=== PATIENT | female | born 1980 | race Caucasian/White ===

== ENCOUNTER 2017-01-12 10:07 | Emergency (ER) | payer SELFPAY ==
[2017-01-12 11:30] VITALS: BP 115/77
--- NOTE | 2017-01-12 12:05 | XRay Report ---
RIGHT WRIST, 4 VIEWS: History: wrist pain, injury. Routine views demonstrate the carpal bones to be well mineralized with well preserved bony mineralization and interosseous joint spaces. The carpal and adjacent articular bones have normal contours. The surrounding soft tissues are unremarkable. IMPRESSION: Unremarkable right wrist.
--- NOTE | 2017-01-12 18:21 | Emergency Department Report ---
Entered by RACHELE OROPEZA, acting as scribe for DOROTHY KIRAN NP. ED Upper Extremity Inj HPI - General Chief Complaint: Extremity Injury, Upper Stated Complaint: RIGHT WRIST PAIN Time Seen by Provider: 01/12/17 13:46 Source: patient Mode of arrival: Ambulatory Limitations: No Limitations - History of Present Illness Initial Comments: This is a 36 y/o female, nontoxic, well nourished in appearance, no acute signs of distress with a PMHx of HTN and Crohn's disease presents with gradually worsening right wrist pain that began 2 weeks ago. Patient states she was untying her dog from a chain leash 2 weeks ago, and her right wrist was subsequently pulled. Rates pain an 8/10 in severity, which she describes as sharp and throbbing in quality. Aggravated with movement and alleviated with immobilization. Denies numbness, tingling, swelling, fever, chills, chest pain, SOB, BRAVO, and dizziness. Took Tylenol PM with some relief. Allergic to penicillin. Complaint: Injury to:: right, wrist Onset/Timin -: week(s) Other Extremity Injury: Wrist: Right Other Injuries: none Handedness: right Place: home Severity scale (0 -10): 8 Improves With: immobilization, medication Worsens With: movement of extremity Context: other (pulled accidently while untying her dog from a leash) Associated Symptoms: denies other symptoms. denies: weakness, numbness, neck pain, suspects foreign body, nausea/vomiting, heard/felt popping sensat Treatments Prior to Arrival: NSAIDS (Tylenol PM) - Related Data Previous Rx's Medication Instructions Recorded Last Taken Type Hydrochlorothiazide [HCTZ] 12.5 mg PO QDAY #30 capsule 09/14/15 Unknown Rx Ibuprofen [Motrin 600 MG tab] 600 mg PO Q8H PRN #30 tablet 01/12/17 Unknown Rx Allergies Allergy/AdvReac Type Severity Reaction Status Date / Time Penicillins Allergy Hives Verified 01/12/17 11:24 ED Review of Systems Comment: All other systems reviewed and negative Constitutional: denies: chills, fever Eyes: denies: eye pain, eye discharge, vision change ENT: denies: ear pain, throat pain Respiratory: denies: cough, orthopnea, shortness of breath, SOB with exertion, SOB at rest, stridor, wheezing Cardiovascular: denies: chest pain, palpitations, dyspnea on exertion, orthopnea , edema, syncope, paroxysmal nocturnal dyspnea Endocrine: no symptoms reported Gastrointestinal: denies: abdominal pain, nausea, vomiting, diarrhea Genitourinary: denies: urgency, dysuria, discharge Musculoskeletal: arthralgia (RT wrist pain). denies: back pain, joint swelling , myalgia Skin: denies: rash, lesions Neurological: denies: headache, weakness, numbness, paresthesias Psychiatric: denies: anxiety, depression Hematological/Lymphatic: denies: easy bleeding, easy bruising ED Past Medical Hx - Past Medical History Previous Medical History?: Yes Hx Hypertension: Yes Hx Asthma: Yes Additional medical history: CROHNS ? - Surgical History Past Surgical History?: Yes Hx Cholecystectomy: Yes Additional Surgical History: tubal ligation. X 3 - Family History Family history: no significant - Social History Smoking Status: Former Smoker Substance Use Type: None - Medications Home Medications: Home Medications Medication Instructions Recorded Confirmed Last Taken Type Hydrochlorothiazide [HCTZ] 12.5 mg PO QDAY #30 capsule 09/14/15 01/12/17 Unknown Rx Ibuprofen [Motrin 600 MG tab] 600 mg PO Q8H PRN #30 tablet 01/12/17 Unknown Rx ED Physical Exam - General Limitations: No Limitations General appearance: alert, in no apparent distress - Head Head exam: Present: atraumatic, normocephalic - Eye Eye exam: Present: normal appearance, PERRL, EOMI. Absent: scleral icterus, conjunctival injection, nystagmus, periorbital swelling, periorbital tenderness Pupils: Present: normal accommodation - ENT ENT exam: Present: normal exam, normal orophraynx, mucous membranes moist, TM's normal bilaterally, normal external ear exam - Neck Neck exam: Present: normal inspection, full ROM. Absent: tenderness, meningismus, lymphadenopathy, thyromegaly - Respiratory Respiratory exam: Present: normal lung sounds bilaterally. Absent: respiratory distress, wheezes, rales, rhonchi, stridor, chest wall tenderness, accessory muscle use, decreased breath sounds, prolonged expiratory - Cardiovascular Cardiovascular Exam: Present: regular rate, normal rhythm, normal heart sounds. Absent: bradycardia, tachycardia, irregular rhythm, systolic murmur, diastolic murmur, rubs, gallop - GI/Abdominal GI/Abdominal exam: Present: soft, normal bowel sounds. Absent: distended, tenderness, guarding, rebound, rigid - Extremities Exam Extremities exam: Present: full ROM (painful FROM to RT wrist), tenderness (RT lateral wrist), normal capillary refill. Absent: normal inspection, pedal edema , joint swelling, calf tenderness - Expanded Upper Extremity Exam Right General: Present: normal inspection. Absent: laceration, abrasion, nail injury (#), foreign body, amputation, avulsion Shoulder Exam: Present: normal inspection, full ROM. Absent: tenderness, swelling, abrasion, laceration, ecchymosis, deformity, crepidus, dislocation, erythema, tenderness over AC joint Upper Arm exam: Present: normal inspection, full ROM. Absent: tenderness, swelling, abrasion, laceration, ecchymosis, deformity, crepidus, dislocation, erythema Elbow exam: Present: normal inspection, full ROM. Absent: tenderness, swelling , abrasion, laceration, ecchymosis, deformity, crepidus, dislocation, erythema, effusion, pain w/ pronation/supination, tenderness over radial head Forearm Wrist exam: Present: normal inspection, full ROM. Absent: tenderness, swelling, abrasion, laceration, ecchymosis, deformity, crepidus, dislocation, erythema, tenderness over anatomical snuff box, pain with axial thumb loading Hand Wrist exam: Present: full ROM (painful FROM to RT wrist), tenderness (RT lateral wrist). Absent: normal inspection, swelling, abrasion, laceration, ecchymosis, deformity, crepidus, dislocation, erythema, amputation, nail avulsion, subungual hematoma Neuro motor exam: Present: wrist extension intact, thumb opposition intact, thumb IP flexion intact, thumb adduction intact, fingers 2-5 abduction intact Neurosensory exam: Present: 2-point discrimination, radial nerve intact, ulnar nerve intact, median nerve intact Vascular: Present: normal capillary refill, radial pulse (2+), brachial pulse, ulnar pulse. Absent: vascular compromise, Pallo, pulse deficit radial art - Back Exam Back exam: Present: normal inspection, full ROM. Absent: tenderness, CVA tenderness (R), CVA tenderness (L), muscle spasm, paraspinal tenderness, vertebral tenderness, rash noted - Neurological Exam Neurological exam: Present: alert, oriented X3, CN II-XII intact, normal gait, reflexes normal. Absent: motor sensory deficit - Psychiatric Psychiatric exam: Present: normal affect, normal mood - Skin Skin exam: Present: warm, dry, intact. Absent: rash ED Course Vital Signs 01/12/17 11:27 Temperature 98.3 F Pulse Rate 54 L Respiratory 18 Rate Blood Pressure 115/77 O2 Sat by Pulse 100 Oximetry - Reevaluation(s) Reevaluation #1: 01/12/17 14:45 Patient is speaking in full sentences with no siigns of distress ED Medical Decision Making - Radiology Data Radiology results: report reviewed interpreted by me: Dr. Duffy Negative findings of any fractures, dislocation or any abnormalities. ED Disposition Clinical Impression: Wrist strain Qualifiers: Encounter type: initial encounter Laterality: right Qualified Code(s): S66.911A - Strain of unspecified muscle, fascia and tendon at wrist and hand level, right hand, initial encounter Disposition: TO HOME OR SELFCARE Is pt being admited?: No Does the pt Need Aspirin: No Condition: Stable Instructions: Wrist Injury (ED), Ibuprofen (By mouth) Additional Instructions: Follow-up with the orthopedic doctor in 3-5 days or if symptoms worsen to continue return to emergency room as soon as possible. Prescriptions: Ibuprofen [Motrin 600 MG tab] 600 mg PO Q8H PRN #30 tablet PRN Reason: Pain Referrals: PRIMARY CARE, [Primary Care Provider] - 3-5 Days KAYLEE MONTERROSO MD [Staff Physician] - 3-5 Days [facility] [Outside] - 3-5 Days [facility] [Outside] - 3-5 Days Forms: Work/School Release Form(ED) This documentation as recorded by the JOHNNA aguayo JASMINE,accurately reflects the service I personally performed and the decisions made by me,DOROTHY KIRAN, MEÑO.
== END 2017-01-12 14:55 | disposition home or self-care (01) ==
LOC: ED 10:07
DX: S66.911A Strain of unspecified muscle, fascia and tendon at wrist and hand level, right hand, initial encounter (principal); I10 Essential (primary) hypertension; J45.909 Unspecified asthma, uncomplicated; Z88.0 Allergy status to penicillin; Z87.891 Personal history of nicotine dependence; X58.XXXA Exposure to other specified factors, initial encounter; Y93.89 Activity, other specified; Y92.89 Other specified places as the place of occurrence of the external cause; Y99.8 Other external cause status
CPT/HCPCS: 99283

== ENCOUNTER 2019-07-23 03:41 | Emergency (ER) | payer SELFPAY ==
--- NOTE | 2019-07-23 08:23 | Emergency Department Report ---
Minor Respiratory - HPI Chief Complaint: Upper Respiratory Infection Stated Complaint: BODY ACHES, DIFFICULTY BREATHING, CHILLS Time Seen by Provider: 07/23/19 07:14 Duration: 2 Days Severity: mild Minor Respiratory: Yes Rhinorrhea, Yes Able to Tolerate Fluids, Yes Cough, Yes Sick Contacts, No Sore Throat, No Ear Pain, No Hemoptysis, No Chest Pain, No Shortness of Breath, No Fever Other History: This is a 39-year-old -Filip[place] female who presents to the emergency room with myalgia, cough, chills, and nausea for 2 days. 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 Past medical history of hypertension and Crohn's. She is currently taking [id number] cold and flu medication with minimal improvement of symptoms. Patient denies fever, vomiting, abdominal pain, diarrhea, or weakness. ED Review of Systems ROS: Stated complaint: BODY ACHES, DIFFICULTY BREATHING, CHILLS Other details as noted in HPI Constitutional: chills. denies: fever ENT: congestion. denies: ear pain, throat pain Respiratory: cough. denies: shortness of breath, wheezing Cardiovascular: denies: chest pain, palpitations Gastrointestinal: nausea. denies: abdominal pain, vomiting, diarrhea Musculoskeletal: denies: back pain, joint swelling, arthralgia Skin: denies: rash, lesions Neurological: denies: headache, weakness, paresthesias Psychiatric: denies: anxiety, depression ED Past Medical Hx - Past Medical History Previous Medical History?: Yes Hx Hypertension: Yes (taken off meds by md) Hx Asthma: Yes Additional medical history: CROHNS - Surgical History Past Surgical History?: Yes Hx Cholecystectomy: Yes Additional Surgical History: tubal ligation. X 3 - Social History Smoking Status: Never Smoker Substance Use Type: Marijuana - Medications Home Medications: Home Medications Medication Instructions Recorded Confirmed Last Taken Type hydroCHLOROthiazide [HCTZ] 12.5 mg PO QDAY #30 capsule 09/14/15 01/12/17 Unknown Rx Ibuprofen [Motrin 600 MG tab] 600 mg PO Q8H PRN #30 tablet 01/12/17 Unknown Rx Albuterol INH(or & Nicu Only) 2 puff IH QID PRN #8.5 gram 07/23/19 Unknown Rx [ProAir HFA Inhaler] Benzonatate [Tessalon Perles] 100 mg PO Q8HR PRN #30 capsule 07/23/19 Unknown Rx Minor Respiratory Exam - Exam General: Vital signs noted. No distress. Alert and acting appropriately. HEENT: Yes Moist Mucous Membranes, Yes Rhinorrhea (Turbinates congested with clear discharge), No Pharyngeal Erythema, No Pharyngeal Exudates, No Conjuctival Injection, No Frontal Tenderness, No Maxillary Tenderness Ear: Neither TM Bulge, Neither TM Erythema, Neither EAC Pain, Neither EAC Discharge Neck: Yes Supple, No Adenopathy Lungs: Yes Good Air Exchange, No Wheezes, No Ronchi, No Stridor, No Cough, No Labored Respirations, No Retractions, No Use of Accessory Muscles, No Other Abnormal Lung Sounds Heart: Yes Regular, No Murmur Abdomen: Yes Normal Bowel Sounds, No Tenderness, No Peritoneal Signs Skin: No Rash, No Edema Neurologic: Alert and oriented, no deficits. Musculoskeletal: Unremarkable. ED Course Vital Signs 07/23/19 03:44 Temperature 98.0 F Pulse Rate 95 H Respiratory 18 Rate Blood Pressure 149/88 O2 Sat by Pulse 100 Oximetry Vital Signs 07/23/19 07/23/19 03:44 08:32 Temperature 98.0 F Pulse Rate 95 H 86 Respiratory 18 18 Rate Blood Pressure 149/88 Blood Pressure 140/84 [Left] O2 Sat by Pulse 100 100 Oximetry ED Medical Decision Making - Medical Decision Making 39 y.o. female that presents with URI symptoms. Patient examined by me and stable. No distress noted. Vitals normal. Past medical history of hypertension and Crohn's. Patient is otherwise healthy patient with viral upper respiratory symptoms. She denies chest pain, weakness, headache, or fever. No vocal changes or uvula deviation to be concern for MEDICAL AIDE. There is low suspicion of influenza, pneumonia, strep throat, or sinusitis. Labs and imaging are deferred at this time. There are no indications for antibiotics at this time. Will start supportive medication such as cough suppressant and inhaler. Instructed to continue [id number] cold and flu medications, increase fluid intake, and wash hands frequently. Discharged home stable with strict return instructions. Follow up with Primary Care Provider in 2-3 days. Return to work tomorrow. Critical care attestation.: If time is entered above; I have spent that time in minutes in the direct care of this critically ill patient, excluding procedure time. ED Disposition Clinical Impression: Upper respiratory infection Qualifiers: URI type: acute nasopharyngitis (common cold) Qualified Code(s): J00 - Acute nasopharyngitis [common cold] Disposition: TO HOME OR SELFCARE Is pt being admited?: No Condition: Stable Instructions: Upper Respiratory Infection (ED), Cold Symptoms (ED) Additional Instructions: Increase fluid intake and rest. Wash hands frequently. Continue taking Tylenol or ibuprofen to control fever. Follow up with Primary Care Provider. Return to ER if fever, SOB, or difficulty breathing after 48 hours of supportive care. Prescriptions: Albuterol INH(or & Nicu Only) [ProAir HFA Inhaler] 2 puff IH QID PRN #8.5 gram PRN Reason: Shortness Of Breath Benzonatate [Tessalon Perles] 100 mg PO Q8HR PRN #30 capsule PRN Reason: Cough Referrals: [facility] [Outside] - 3-5 Days [facility] [Outside] - 3-5 Days [facility] [Outside] - 3-5 Days Forms: Work/School Release Form(ED) Time of Disposition: 08:24
[2019-07-23 08:33] VITALS: BP 140/84
== END 2019-07-23 08:32 | disposition home or self-care (01) ==
LOC: ED 03:41
DX: J06.9 Acute upper respiratory infection, unspecified (principal); I10 Essential (primary) hypertension; J45.909 Unspecified asthma, uncomplicated; F12.10 Cannabis abuse, uncomplicated; K50.90 Crohn's disease, unspecified, without complications; Z98.890 Other specified postprocedural states; Z90.49 Acquired absence of other specified parts of digestive tract; Z98.51 Tubal ligation status; Z79.1 Long term (current) use of non-steroidal anti-inflammatories (NSAID); Z79.899 Other long term (current) drug therapy; Z88.0 Allergy status to penicillin
CPT/HCPCS: 99282

== ENCOUNTER 2021-12-04 04:32 | Emergency (ER) | payer SELFPAY ==
[2021-12-04 09:18] VITALS: BP 116/73
[2021-12-04] MEDS ORDERED: MORPHINE 4 MG/1 ML INJ IM ONE (09:20)
[2021-12-04] MEDS ORDERED: KETOROLAC 30 MG/1 ML INJ IM ONE (09:20)
--- NOTE | 2021-12-04 09:27 | Emergency Department Report ---
ED Back Pain/Injury HPI - General Chief Complaint: Back Pain/Injury Stated Complaint: BACK PAIN Time Seen by Provider: 12/04/21 07:52 Source: patient Limitations: No Limitations - History of Present Illness Initial Comments: 41-year-old female no significant medical history presents with back pain. Patient describes sharp pain in her lower back radiating down to her left leg, maurice oviedo has been going on for months but is beginning to affect her work. She was at work last night when symptoms got really bad, difficulty walking. States she has previously seen her primary care doctor regarding this back pain, she had some x-rays done and was referred to physical therapy but she has been unable to continue with therapy because of the nature of her job She denies fall or injury, she denies weakness in her extremity, pain does not radiate to her abdomen, no bladder or bowel dysfunction, no chest pain or shortness of breath. MD Complaint: back pain -: month(s) Similar Symptoms Previously: Yes Place: work Severity: moderate, severe Severity scale (0 -10): 10 Quality: sharp Improves With: none Worsens With: movement, sitting upright, walking Associated Symptoms: difficulty walking. denies: confusion, weakness, chest pain, numbness, cough, difficulty urinating, incontinence, fever/chills, constipation, headaches, abdominal pain, loss of appetite, malaise - Related Data Previous Rx's Medication Instructions Recorded Last Taken Type hydroCHLOROthiazide [HCTZ] 12.5 mg PO QDAY #30 capsule 09/14/15 Unknown Rx Ibuprofen [Motrin 600 MG tab] 600 mg PO Q8H PRN #30 tablet 01/12/17 Unknown Rx Albuterol Mdi (or & Nicu Only) 2 puff IH QID PRN #8.5 gram 07/23/19 Unknown Rx [ProAir HFA Inhaler] Benzonatate [Tessalon Perles] 100 mg PO Q8HR PRN #30 capsule 07/23/19 Unknown Rx Ibuprofen [Motrin] 800 mg PO Q8HR #40 tablet 11/03/19 Unknown Rx methOCARBAMOL [Robaxin TAB] 500 mg PO BID #20 tab 11/03/19 Unknown Rx Cyclobenzaprine [Flexeril] 10 mg PO TID PRN #21 12/04/21 Unknown Rx Methyl Salicylate/Menth/Camph 1 each TP DAILY #7 patch 12/04/21 Unknown Rx [Salonpas 3.1%-6.0%-10.0% Patch] Naproxen [Naprosyn] 500 mg PO BID PRN #21 tablet 12/04/21 Unknown Rx Allergies Allergy/AdvReac Type Severity Reaction Status Date / Time Penicillins Allergy Hives Verified 11/03/19 15:10 ED Review of Systems ROS: Stated complaint: BACK PAIN Other details as noted in HPI Constitutional: no symptoms reported Respiratory: denies: no symptoms reported, cough Cardiovascular: denies: chest pain, palpitations Endocrine: denies: intolerance to cold, intolerance to heat Gastrointestinal: denies: abdominal pain, nausea, vomiting Genitourinary: denies: urgency, dysuria Musculoskeletal: back pain Skin: denies: rash, lesions Neurological: denies: headache, weakness Psychiatric: denies: as per HPI, anxiety, depression ED Past Medical Hx - Past Medical History Hx Hypertension: Yes (taken off meds by md) Hx Asthma: Yes Additional medical history: CROHNS - Surgical History Hx Cholecystectomy: Yes Additional Surgical History: tubal ligation. X 3 - Social History Smoking Status: Never Smoker Substance Use Type: Marijuana - Medications Home Medications: Home Medications Medication Instructions Recorded Confirmed Last Taken Type hydroCHLOROthiazide [HCTZ] 12.5 mg PO QDAY #30 capsule 09/14/15 01/12/17 Unknown Rx Ibuprofen [Motrin 600 MG tab] 600 mg PO Q8H PRN #30 tablet 01/12/17 Unknown Rx Albuterol Mdi (or & Nicu Only) 2 puff IH QID PRN #8.5 gram 07/23/19 Unknown Rx [ProAir HFA Inhaler] Benzonatate [Tessalon Perles] 100 mg PO Q8HR PRN #30 capsule 07/23/19 Unknown Rx Ibuprofen [Motrin] 800 mg PO Q8HR #40 tablet 11/03/19 Unknown Rx methOCARBAMOL [Robaxin TAB] 500 mg PO BID #20 tab 11/03/19 Unknown Rx Cyclobenzaprine [Flexeril] 10 mg PO TID PRN #21 12/04/21 Unknown Rx Methyl Salicylate/Menth/Camph 1 each TP DAILY #7 patch 12/04/21 Unknown Rx [Salonpas 3.1%-6.0%-10.0% Patch] Naproxen [Naprosyn] 500 mg PO BID PRN #21 tablet 12/04/21 Unknown Rx ED Physical Exam - General Limitations: No Limitations General appearance: alert, in no apparent distress, obese - Head Head exam: Present: atraumatic - Eye Eye exam: Present: normal appearance - ENT ENT exam: Present: normal exam, normal orophraynx - Neck Neck exam: Present: normal inspection. Absent: tenderness - Respiratory Respiratory exam: Present: normal lung sounds bilaterally. Absent: respiratory distress - Cardiovascular Cardiovascular Exam: Present: regular rate, normal rhythm - GI/Abdominal GI/Abdominal exam: Present: soft. Absent: distended, tenderness - Extremities Exam Extremities exam: Present: normal inspection, full ROM, tenderness (Left hip left gluteal tenderness.), normal capillary refill - Back Exam Back exam: Present: tenderness (Lumbar tenderness with paralumbar tenderness radiating down to the left gluteal left hip and the posterior left leg.) - Neurological Exam Neurological exam: Present: alert, oriented X3. Absent: motor sensory deficit - Psychiatric Psychiatric exam: Present: normal affect, normal mood - Skin Skin exam: Present: warm, dry, intact, normal color ED Course Vital Signs 12/04/21 12/04/21 05:07 09:16 Temperature 98.3 F 97.9 F Pulse Rate 68 58 L Respiratory 14 16 Rate Blood Pressure 116/72 116/73 [Right] O2 Sat by Pulse 100 100 Oximetry ED Medical Decision Making - Medical Decision Making 1-year-old female no significant medical history presents with back pain. Patient describes sharp pain in her lower back radiating down to her left leg, states has been going on for months but is beginning to affect her work. She was at work last night when symptoms got really bad, difficulty walking. States she has previously seen her primary care doctor regarding this back pain, she had some x-rays done and was referred to physical therapy but she has been unable to continue with therapy because of the nature of her job She denies fall or injury, she denies weakness in her extremity, pain does not radiate to her abdomen, no bladder or bowel dysfunction, no chest pain or shortness of breath. No red flags on examination, sensation groups DTRs all intact bilaterally. Symptoms has going on for months, no indication for acute imaging at this time, can be followed up outpatient. I reinforced the importance of following up with physical therapy as her doctor has prescribed, will discharge home with some NSAIDs and muscle relaxants and pain management in the meantime including activity modification. I discussed all of this with patient with understanding. Critical care attestation.: If time is entered above; I have spent that time in minutes in the direct care of this critically ill patient, excluding procedure time. ED Disposition Clinical Impression: Lumbar back pain with radiculopathy affecting left lower extremity Disposition: HOME / SELF CARE / HOMELESS Is pt being admited?: No Does the pt Need Aspirin: No Condition: Stable Instructions: Radicular Pain, Low Back Sprain or Strain Rehab-SportsMed Referrals: KAYELE MONTERROSO MD [Staff Physician] - 3-5 Days Forms: Work/School Release Form
== END 2021-12-04 10:02 | disposition home or self-care (01) ==
LOC: ED 04:32
DX: M54.16 Radiculopathy, lumbar region (principal); I10 Essential (primary) hypertension; J45.909 Unspecified asthma, uncomplicated; Z90.49 Acquired absence of other specified parts of digestive tract; Z88.0 Allergy status to penicillin
CPT/HCPCS: 96372; 99282; J1885; J2270